=== PATIENT | female | born 1955 | race Caucasian/White ===

== ENCOUNTER → 2016-07-16 | Outpatient (CLI) | payer BC ==
[~2016-07-16] MED LIST: ASPI325T32 PO; EZET10TA3 PO; HYDR-906 PO; HYDR12.58 PO; PANT40TA4 PO; TRAM50TA2 PO
== END | disposition home or self-care (01) ==
LOC: HKI 09:51
PROVIDERS: ATTEND Orthopaedic Surgery
DX: Z01.818 Encounter for other preprocedural examination (principal); M16.11 Unilateral primary osteoarthritis, right hip
CPT/HCPCS: 87081; G0463

== ENCOUNTER 2016-07-22 05:19 | Inpatient (IN) | payer BC ==
[2016-07-21 12:00] VITALS: BMI 25.3
[~2016-07-22] VITALS: Ht 176.5 cm; Wt 82.8 kg
[2016-07-22] VITALS (23 sets, daily range): BP systolic 91–147; BP diastolic 51–75; PULSE 60–78; RESP 11–21; Ht 176.5 cm; Wt 82.8 kg
[2016-07-22] MEDS: LACTATED RINGER'S 1,000 ML IV SCH ×4 (05:00→18:02)
[~2016-07-22 05:19] MED LIST changes: -ASPI325T32 PO; +BUPIVACAINE LIPOSOME/PF 266 MG/20 ML VIAL INFIL ONE; +CEFAZOLIN 2GM/50 ML (PMX) 50 ML X1 BEFORE INCISION IVPB ONE; +CELECOXIB 400 MG PO X1 DOSE PO ONE; +EXPAREL NOTE (BUPIVICAINE LIPOSOMAL) XX SCH; -EZET10TA3 PO; -HYDR-906 PO; -HYDR12.58 PO; +PAIN COCKTAIL-CEFUROXIME IRR ONE; -PANT40TA4 PO; +PREGABALIN 300 MG PO X1 PO ONE; -TRAM50TA2 PO; +TRANEXAMIC ACID 800 MG in SOD CHLORIDE 0.9% 100 ML IVPB ONE; +TRANEXAMIC ACID 800 MG in SOD CHLORIDE 0.9% 92 ML IV ONE; +oxyCODONE (CR) 10 MG TAB [oxyCONTIN] X1 DOSE PO ONE; +traMADOL 50 MG TAB X 1 DOSE PO ONE
[2016-07-22] MEDS ORDERED: SODIUM CL BACTERIOSTATIC 30 ML INJ ONE (06:50)
[2016-07-22] MEDS ORDERED: VANCOMYCIN 1 GM INJ ONE (06:50)
[2016-07-22] MEDS ORDERED: POLYMYXIN B 500000 UNIT INJ ONE (06:50)
[2016-07-22] MEDS ORDERED: ROCURONIUM 50 MG INJ ONE (07:00)
--- NOTE | 2016-07-22 07:11 | HPN ---
Date/Time of Note Date/Time of Note DATE: 07/22/16 TIME: 07:10 Interval H&P Admission Note Pt. seen H&P reviewed: No system changes No change from H&P on 07/13/16 by MARIA GUADALUPE Cooper MD Jul 22, 2016 07:11
[2016-07-22] MEDS ORDERED: SUCCINYLCHOLINE CHLORIDE 100 MG/5 ML SYG IV ONE (07:12)
[2016-07-22] MEDS ORDERED: LIDOCAINE 2% (SDV) 5 ML INJ ONE (07:12)
[2016-07-22] MEDS ORDERED: MIDAZOLAM 1 MG/ML 2 ML INJ ONE (07:12)
[2016-07-22] MEDS ORDERED: PROPOFOL 100 ML ONE (07:12)
[2016-07-22] MEDS ORDERED: FENTAnyl 50 MCG/ML VIAL ONE (07:12)
[2016-07-22] MEDS ORDERED: EZET10TA3 PO (07:13)
[2016-07-22] MEDS ORDERED: HYDR12.58 PO (07:13)
[2016-07-22] MEDS ORDERED: DEXAMETHASONE 4 MG/ML 1 ML INJ ONE (07:44)
[2016-07-22] MEDS ORDERED: EPHEDrine SULFATE 50 MG/5 ML SYG ONE (08:15)
[2016-07-22] MEDS ORDERED: ONDANSETRON 4 MG INJ ONE (08:15)
[2016-07-22] MEDS ORDERED: FAMOTIDINE 20 MG INJ ONE (08:15)
[2016-07-22] MEDS ORDERED: BACITRACIN 50000 UNITS INJ IRR ONE (08:25)
[2016-07-22] MEDS ORDERED: FENTAnyl 50 MCG/ML VIAL IV PRN (09:00)
[2016-07-22] MEDS ORDERED: MEPERIDINE 25 MG INJ IV PRN (09:00)
[2016-07-22] MEDS ORDERED: DIPHENHYDRAMINE 50 MG INJ IV PRN (09:00)
[2016-07-22] MEDS ORDERED: ONDANSETRON 4 MG INJ IV PRN ×2 (09:00→10:30)
[2016-07-22] MEDS ORDERED: PROCHLORPERAZINE 10 MG INJ IV PRN (09:00)
[2016-07-22] MEDS ORDERED: NEOSTIGMINE 3 MG/3 ML SYRINGE ONE (09:13)
[2016-07-22] MEDS ORDERED: GLYCOPYRROLATE 1 MG INJ ONE (09:13)
[2016-07-22] MEDS ORDERED: BACITRACIN/POLYMYXIN 28.35 GM OINT TOP ONE (09:50)
--- NOTE | 2016-07-22 10:10 | OPPN ---
Date/Time of Note Date/Time of Note DATE: 07/22/16 TIME: 10:09 Operative/Procedure Note Dictation # [id number] Pre-Operative Diagnosis Right Hip OA Post-Operative Diagnosis Same Procedure Right Anterior NAHUM Surgeon: MARIA GUADALUPE CHAVEZ MD Boxing Promoter: GUS AC PA-C Anesthesiologist: BRITTANY DAWN MD Findings Severe OA Blood Usage/Administration None Implants/Grafts Depuy NAHUM Estimated blood loss: 250 - 300 ml's Drains Hemovac x 1 Specimens Femoral Head Complications: None Anesthesia type: spinal MARIA GUADALUPE CHAVEZ MD Jul 22, 2016 10:10
--- NOTE | 2016-07-22 10:10 | RADRPT ---
PROCEDURE: Fluoroscopic guidance with x-ray images during right hip arthroplasty. CLINICAL INDICATION: Right hip arthroplasty. TECHNIQUE: 13 x-ray images were obtained during right hip arthroplasty. COMPARISON: None available FINDINGS: 0.7 minutes of fluoroscopy time was utilized during pacemaker insertion. 13 x-ray images were obtai alirio during the procedure in progress for guidance. Cumulative dose total is 7.80 mGy and 0.231 mGym2 . A right hip arthroplasty was performed. The prosthesis is in good position and alignment. No acu te fracture identified. Procedure was performed by . IMPRESSION: 1. Fluoroscopic guidance with x-ray images obtained for right hip arthroplasty. RPTAT: XX .Stepan Gold MD, MD Date Time Electronically viewed and signed by .Stepan Gold MD, on 07/22/2016 10:09 .T/
--- NOTE | 2016-07-22 10:10 | PN ---
Date/Time of Note Date/Time of Note DATE: 07/22/16 TIME: 10:09 Assessment/Plan Lines/Catheters IV Catheter Type (from Nrsg): Peripheral IV Assessment/Plan Assessment/Plan Stable in PACU, s/p right anterior NAHUM -cont abx -pain meds as needed -ASA/SCDs for DVT prophylaxis -OOB with PT -monitor drain -check AM labs -d/c becker in AM XR of the right hip is pending at this time Subjective 24 Hr Interval Summary Doing well in PACU. Complaining of mild pain. Moving all extremities. Exam/Review of Systems Vital Signs Vitals Vital Signs Date Time Temp Pulse Resp B/P Pulse Ox O2 Delivery O2 Flow Rate FiO2 07/22/16 06:56 98.2 77 18 147/75 99 Intake and Output 07/21/16 07/21/16 07/22/16 15:00 23:00 07:00 Intake Total 0 ml Balance 0 ml Exam Free Text/Dictation Dressing dry Incision clean, dry, and intact without redness or drainage Thigh soft 5/5 Quadriceps, Tibialis Anterior, EHL, Gastroc, Soleus, Peroneals Normal sensation Palpable DT/PT, CR <2 sec No distal edema GUS AC PA-C Jul 22, 2016 10:10
[2016-07-22] MEDS: HYDROmorphONE (0.2 MG/ML) 10ML SYG IV PRN ×2 (10:18→10:36)
[2016-07-22] MEDS ORDERED: oxyCODONE 5 MG TAB PO PRN ×2 (10:30)
[2016-07-22] MEDS ORDERED: DIPHENHYDRAMINE 25 MG CAP PO PRN (10:30)
[2016-07-22] MEDS ORDERED: NA PHOSPHATE/BIPHOS 133 ML ENEMA PR PRN (10:30)
[2016-07-22] MEDS ORDERED: NACL 0.9% 3 ML SYG IV SCH (10:30)
[2016-07-22] MEDS ORDERED: BISACODYL 10 MG SUPP PR PRN (10:30)
[2016-07-22] MEDS ORDERED: HYDROmorphONE 1 MG/ML SYG IV PRN (10:30)
[2016-07-22] MEDS ORDERED: MAGNESIUM HYDROXIDE 30ML CUP PO PRN (10:30)
[2016-07-22] MEDS ORDERED: ASPIRIN (EC) 325 MG TAB PO ONE (10:30)
--- NOTE | 2016-07-22 10:34 | OPR ---
DATE OF OPERATION: 07/22/2016 PREOPERATIVE DIAGNOSIS: Right hip osteoarthritis. POSTOPERATIVE DIAGNOSIS: Right hip osteoarthritis. OPERATION PERFORMED: Right anterior total hip arthroplasty. SURGEON: Maria Guadalupe Houston MD SPECIAL EDUCATION CURRICULUM SPECIALIST: SALVATORE Cervantes COMPONENTS USED: DePuy size 54 mm [place] cup, 54/36 neutral AltrX polyethylene liner, size 10 high offset Actis stem, 36+1.5 ceramic head. ANESTHESIA: Spinal plus general endotracheal intubation plus periarticular injection. ANESTHESIOLOGIST: Dr. Prachi Gary ESTIMATED BLOOD LOSS: 300 mL. INTRAVENOUS FLUIDS: 2300 mL crystalloid. SPECIMENS: Femoral head. DRAINS: Hemovac x1. COMPLICATIONS: None. DISPOSITION: Patient tolerated the procedure well and was taken to the recovery room in stable condition. INDICATIONS: The patient is a 61-year-old woman who has had progressive worsening pain in the right hip with radiographic evidence of severe osteoarthritis. She has failed nonsurgical means of treatment to control her pain including activity modifications, pain medications, ambulatory assist devices. Despite these measures, she has had worsening pain and I felt she would benefit from a total hip arthroplasty through an anterior approach. The risks, benefits, and alternatives of the procedure were explained in detail to the patient. I explained the risks of the surgery to include, but not be limited to: bleeding and possible need for blood transfusion; infection; pain; stiffness; neurovascular injury with possible numbness, weakness, and/or paralysis anywhere from the hip down to the toes; fracture; instability; dislocation; leg length inequality; wear and/or loosening of the prosthesis and possible need for future revision; blood clots; pulmonary embolism; and anesthetic complications such as heart attack, stroke, GI bleed, pneumonia, and/ or . Ample time was allowed for the patient to ask questions, all of which were addressed and answered. The patient understood the risks involved and wished to proceed. Informed consent was signed prior to the procedure. PROCEDURE: The patient's right hip was initialed with a marking pen in the preoperative area to identify the correct operative site. The patient was brought to the operating room and transferred [facility] the [facility] to the [facility] where a spinal anesthetic was administered. The patient was then anesthetized and intubated. A Stoll catheter was placed. Both feet were placed into well padded boots which were then placed into the leg holders of the traction booms. A timeout was performed to confirm that the right side was the correct operative site. The patient was given 2 g of intravenous Ancef within one hour prior to the procedure. The operative hip was prepped and draped in the usual sterile fashion. A 10 cm oblique incision was made over the anterior aspect of the hip and carried down through subcutaneous tissue and fat with sharp dissection. The tensor fascia jamie was incised along the length of the wound. The tensor fascia muscle was retracted laterally and the sartorius medially. The anterior circumflex vessels were identified and tied off with 2-0 silk suture and coagulated with the Tissue Link superintendent mechanical. The rectus femoris was elevated off the anterior capsule and an anterior capsulectomy performed. A femoral neck osteotomy was made and the head removed from the acetabulum. The acetabulum was denuded of cartilage circumferentially, as was the femoral head. Retractors were placed around the acetabulum. The remnants of the labrum and ligamentum teres were excised. I reamed the acetabulum to the medial wall and then went into an anatomic position and increased the reamer size in 2 mm increments until I got a good bite and was down to bleeding subchondral bone. The Carrboro cup was opened and impacted into the acetabulum and sat flush circumferentially, getting a good bite. C-arm imaging showed it had about 40 to 45 degrees of abduction and 20 degrees of anteversion. The real liner was opened and impacted into the acetabulum and sat flush circumferentially. Attention was turned towards the femur. The operative leg was carefully lowered to the floor with the leg adducted. The foot was then externally rotated to approximately 110 degrees. A posteromedial release was performed to optimize exposure. The femoral hook was placed underneath the proximal femur and the hydraulic lift was then used to elevate the femur up out of the wound. The cookie cutter osteotome was used to remove the remaining overhanging greater trochanter. The femur was then broached, going up in one size increments until it sat flush with the neck cut and a stable fit was achieved. The trial neck and head were assembled and reduced into the acetabulum. Fluoroscopic imaging showed the components to be in good position and the leg lengths and offsets to be equal. At this point, the trial was dislocated and the trial broach removed. The canal was irrigated and dried. The real stem was opened and impacted into the femur. The trunnion was irrigated and dried, and the real femoral head was impacted onto the trunnion, and reduced into the acetabulum. The soft tissues were infiltrated with a mixture of 150 mg of 0.5% Bupivacaine, 8 mg of Duramorph, 300 mcg of epinephrine, 30 mg of Toradol, 100 mcg of clonidine, 750 mg of cefuroxime and 86 mL of normal saline, followed by an injection of 266 mg of liposomal Bupivacaine. At this point the hip was irrigated with a mixture of betadine/saline and then antibiotic saline with pulsatile lavage. A Hemovac drain was placed in the deep portion of the wound and brought out the anterolateral thigh. There was good hemostasis. The tensor fascia jamie was repaired with a running #1 Vicryl. The deep fat layer was irrigated and closed with 2-0 Stratafix and the subcutaneous layer closed with 3 -0 Vicryl and the skin was closed with interrupted 3-0 Prolene in a vertical mattress fashion. The drain was secured with 3-0 nylon. The sponge and needle counts were correct at the end of the case. The wound was covered with an occlusive dressing. The patient was awakened, extubated, and taken to the recovery room in stable condition. Dictated By: MARIA GUADALUPE BRAXTON/EDIL Conf#: [id number] DID#: [id number] OLI
[2016-07-22 10:35] LABS: HEMATOCRIT 35.7 % (37.0-47.0); HEMOGLOBIN 11.7 g/dl (12.0-16.0)
[2016-07-22] MEDS: CEFAZOLIN 2 GM/50 ML (PMX) 50 ML IVPB SCH ×2 (10:35→18:27)
[2016-07-22 10:48] LABS: CALCIUM 8.9 mg/dl (8.4-10.2); CREATININE 0.9 mg/dl (0.44-1.00); POTASSIUM 3.3 mmol/L (3.5-5.1)
--- NOTE | 2016-07-22 11:03 | RADRPT ---
PROCEDURE: XR Hip. CLINICAL INDICATION: Postop. TECHNIQUE: An AP view of the pelvis was obtained. COMPARISON: X-ray pelvis dated 02/25/2016 FINDINGS: There are postsurgical changes from right total hip arthroplasty with femoral and acetabular compone nts. The hardware is intact. Alignment appears satisfactory on the provided image. No fracture is identified. There are expected post surgical changes with mild subcutaneous emphysema and drainage catheter. IMPRESSION: Expected postoperative changes from total right hip arthroplasty. Alignment appears anatomic. RPTAT: HH .Kelly Potts MD, MD Date Time Electronically viewed and signed by .Kelly Potts MD, MD on 07/22/2016 11:03 .G/
--- NOTE | 2016-07-22 11:04 | RADRPT ---
PROCEDURE: XR Hip. CLINICAL INDICATION: Postop. TECHNIQUE: An AP view of the right hip was obtained. COMPARISON: Pelvis x-ray performed concurrently FINDINGS: There are postsurgical changes from right total hip arthroplasty with femoral and acetabular compone nts. The hardware is intact. Alignment appears satisfactory on the provided image. No fracture is identified. There are expected post surgical changes with mild subcutaneous emphysema and catheter . IMPRESSION: Expected postoperative changes from total right hip arthroplasty. Alignment appears anatomic. RPTAT: HH .Kelly Potts MD, MD Date Time Electronically viewed and signed by .Kelly Potts MD, MD on 07/22/2016 11:04 .G/
[2016-07-22] MEDS ORDERED: POTASSIUM CHLORIDE (SR) 20 MEQ TAB PO STA (11:56)
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
[2016-07-22] MEDS: traMADol 50 MG TAB PO SCH ×5 (12:45→23:13)
[2016-07-22] MEDS: ACETAMINOPHEN 1000MG/100ML IV 100 ML IVPB SCH ×3 (12:46→23:09)
[2016-07-22] MEDS ORDERED: TRANEXAMIC ACID 830 MG in SOD CHLORIDE 0.9% 100 ML IVPB ONE ×2 (13:30→16:30)
[2016-07-22] MEDS ORDERED: BACITRACIN 50000 UNITS INJ ONE (14:54)
[2016-07-22] MEDS: PANTOPRAZOLE (EC) 40 MG TAB PO SCH (18:27)
[2016-07-22] MEDS: DOCUSATE SODIUM 100 MG CAP PO SCH (20:36)
[2016-07-22] MEDS: EZETIMIBE 10 MG TAB PO SCH ×2 (20:36→23:09)
[2016-07-22] MEDS: PREGABALIN 25 MG CAP PO SCH (20:36)
[2016-07-23] MEDS: LACTATED RINGER'S 1,000 ML IV SCH ×2 (00:53→01:44)
[2016-07-23] MEDS: CEFAZOLIN 2 GM/50 ML (PMX) 50 ML IVPB SCH (01:44)
[2016-07-23 04:52] LABS: HEMATOCRIT 25.4 % (37.0-47.0); HEMOGLOBIN 8.2 g/dl (12.0-16.0)
[2016-07-23] MEDS: PANTOPRAZOLE (EC) 40 MG TAB PO SCH ×2 (05:13→18:10)
[2016-07-23] MEDS: traMADol 50 MG TAB PO SCH ×3 (05:13→17:05)
[2016-07-23] MEDS: ACETAMINOPHEN 1000MG/100ML IV 100 ML IVPB SCH (05:13)
[2016-07-23 05:16] LABS: CREATININE 0.95 mg/dl (0.44-1.00)
[2016-07-23 05:17] LABS: CALCIUM 8.4 mg/dl (8.4-10.2)
[2016-07-23] MEDS ORDERED: VITAMIN A & D 5 GM OINT PACKET TOP ONE (05:18)
--- NOTE | 2016-07-23 07:33 | PDOCDIS ---
Discharge Instructions DIAGNOSIS Discharge Diagnosis: s/p right anterior NAHUM CONDITION Patient Condition: Good HOME CARE INSTRUCTIONS: Diet Instructions: Regular ACTIVITY: Activity Restrictions: Slowly Increase Activity Rest between Activity Avoid heavy lifting Do not Drive Do not operate Machinery Do not operate Power Tool Avoid Heavy Housework Keep Limb Elevated Weight Bearing Bathing Restrictions: Shower FOLLOW UP/APPOINTMENTS Appointments follow up in the office on 08/02/16 OTHER ORDERS: Other Orders: S/P Anterior ANHUM Physical Therapy: Three times per week at home x 2 weeks Daily in Rehab/SNF (if applicable) WB STATUS: WBAT Strengthening exercises for both upper and un-operated lower extremities. 1. Gait training with front wheeled walker 2. Wide base gait, no pivot turns. 3. Abductor strengthening. 4. Quadriceps and hamstring strengthening. 5. May switch to cane in contra lateral hand 6 weeks after surgery. 6. Physical Therapy can open case if nursing is not available. 7. Ice Packs while at rest to surgical wound for 20 minutes, 3 times/day. 8. Patient requires mobile SCDs to reduce risk of developing DVT following NAHUM. Patient will use the mobile SCDs for 30 days postoperatively. Hip Precautions: No posterior hip precautions. Bathing assistance by home health aide twice weekly if Medicare patient. Occupational Therapy: Evaluation for assistive devices and ADL training. Wound Care: Keep incision dry & covered with Tegaderm until first visit with Dr. Houston Anticoagulation Orders: Enteric Coated Aspirin 325 mg po bid x 6 weeks from date of surgery Follow-up:Call for an appointment with Dr. Houston in 1 week after discharged from hospital at DME Orders: ROYER, 3-in-1 Commode, Mobile SCDs GUS AC PA-C Jul 23, 2016 07:33
[2016-07-23] MEDS ORDERED: TRAM50TA2 PO (07:34)
[2016-07-23] MEDS ORDERED: ASPI325T32 PO (07:34)
[2016-07-23] MEDS ORDERED: PANT40TA4 PO (07:34)
[2016-07-23] MEDS ORDERED: HYDR-906 PO (07:34)
[2016-07-23 08:20] VITALS: BP 91/53; RESP 16
--- NOTE | 2016-07-23 08:41 | PN ---
Date/Time of Note Date/Time of Note DATE: 07/23/16 TIME: 08:38 Assessment/Plan Lines/Catheters IV Catheter Type (from Nrsg): Peripheral IV Stoll in Place (from Nrsg): Yes Assessment/Plan Assessment/Plan Stable POD #1 with low H&H, s/p right anterior NAHUM -d/c abx -recheck H&H now. Will continue to monitor but no need for transfusion at this point -ASA/SCDs for DVT prophylaxis -pain meds as needed -OOB with PT -drain removed -check AM labs -d/c planning. Will plan to go home tomorrow or tuesday Subjective 24 Hr Interval Summary Doing well. No acute overnight events. H&H low, but drainage output minimal. Does complain of some mild dizziness. VSS, afebrile. Exam/Review of Systems Vital Signs Vitals Vital Signs Date Time Temp Pulse Resp B/P Pulse Ox O2 Delivery O2 Flow Rate FiO2 07/23/16 08:20 98.0 65 16 91/53 98 07/22/16 15:10 Room Air Intake and Output 07/22/16 07/22/16 07/23/16 15:00 23:00 07:00 Intake Total 2208 ml 670 ml 1975 ml Output Total 635 ml 440 ml 1500 ml Balance 1573 ml 230 ml 475 ml Exam Free Text/Dictation Hemovac: 100cc Dressing dry Incision clean, dry, and intact without redness or drainage 5/5 Quadriceps, Tibialis Anterior, EHL, Gastroc, Soleus, Peroneals Normal sensation Palpable DT/PT, CR <2 sec No distal edema Results Result Diagram: 07/23/1642907/23/16429 GUS AC PA-C Jul 23, 2016 08:40
[2016-07-23] MEDS ORDERED: HYDROCHLOROTHIAZIDE 12.5 MG CAP PO SCH (09:00)
[2016-07-23] MEDS: ASPIRIN (EC) 325 MG TAB PO SCH ×2 (09:35→20:41)
[2016-07-23] MEDS: CELECOXIB 200 MG CAP PO SCH (09:35)
[2016-07-23] MEDS: PREGABALIN 25 MG CAP PO SCH ×2 (09:36→20:40)
[2016-07-23] MEDS: DOCUSATE SODIUM 100 MG CAP PO SCH ×2 (09:36→20:40)
[2016-07-23 10:19] LABS: HEMATOCRIT 24.2 % (37.0-47.0); HEMOGLOBIN 7.8 g/dl (12.0-16.0)
--- NOTE | 2016-07-23 10:46 | CONS ---
Date/Time of Note Date/Time of Note DATE: 07/23/16 TIME: 10:42 Assessment/Plan Assessment/Plan Chief Complaint/Hosp Course 1. She is 1 day postop a right total hip arthroplasty. She was up with physical therapy and got dizzy and her blood pressure dropped. I will order a bolus of normal saline and continue her on a normal saline IV. 2. Her hemoglobin and hematocrit are low. She does not want to have a blood transfusion. I told her that we could give her Epogen as a one-time dose to help stimulate her bone marrow. She agrees. I also told her I would check her iron studies to see if she needs iron. Her blood count will be repeated tomorrow. Problems: Consultation Date/Type/Reason Admit Date/Time Jul 22, 2016 at 05:19 Initial Consult Date Type of Consultation: medicine 24 HR Interval Summary Free Text/Dictation She was up earlier with physical therapy and became dizzy and her blood pressure dropped. She says that she feels dehydrated. Constitutional: no complaints Exam/Review of Systems Vital Signs Vitals Vital Signs Date Time Temp Pulse Resp B/P Pulse Ox O2 Delivery O2 Flow Rate FiO2 07/23/16 08:20 98.0 65 16 91/53 98 07/22/16 15:10 Room Air Intake and Output 07/22/16 07/22/16 07/23/16 15:00 23:00 07:00 Intake Total 2208 ml 670 ml 1975 ml Output Total 635 ml 440 ml 1500 ml Balance 1573 ml 230 ml 475 ml Exam Constitutional: alert, oriented, well developed Psych: nl mood/affect, no complaints Respiratory: clear to auscultation, normal air movement Cardiovascular: nl pulses, regular rate and rhythm Musculoskeletal: nl extremities to inspection Results Result Diagram: 07/23/16 1010 07/23/16 0430 Results 24 hrs Laboratory Tests Test 07/23/16 04:30 07/23/16 10:10 Anion Gap 12 Blood Urea Nitrogen 9 Calcium Level 8.4 Carbon Dioxide Level 28 Chloride Level 100 Creatinine 0.95 Glucose Level 134 Hematocrit 25.4 #L 24.2 L Hemoglobin 8.2 #L 7.8 L Potassium Level 4.0 Sodium Level 136 Medications Medications Current Medications Lactated Ringer's (Lr) 1,000 ml @ 100 mls/hr Q10H IV ; Start 07/22/16 at 05:00 Miscellaneous Information 1 ea NOTE XX ; Start 07/22/16 at 05:00; Stop 07/26/16 at 04:59 EZETIMIBE 10 mg 10 mg HS PO ; Start 07/22/16 at 21:00 Lactated Ringer's (Lr) 1,000 ml @ 125 mls/hr Q8H IV Last administered on 01:44; Admin Dose 125 MLS/HR; Start 07/22/16 at 10:02 Celecoxib 200 mg 200 mg DAILY PO Last administered on 07/23/16 09:35; Admin Dose 200 MG; Start 07/23/16 at 09:00 Acetaminophen (Ofirmev 1000mg/ 100ml Iv) 100 ml @ 400 mls/hr Q6 IVPB Last administered on 07/23/16 05:13; Admin Dose 400 MLS/HR; Start 07/22/16 at 12:00; Stop 07/23/16 at 11:59 Tramadol HCl (Ultram) 50 mg Q6 PO Last administered on 07/23/16 05:13; Admin Dose 50 MG; Start 07/22/16 at 12:00; Stop 07/25/16 at 11:59 Oxycodone HCl (Roxicodone) 5 mg Q4H PRN PO PAIN LEVEL 1-3; Start 07/22/16 at 10: 30 Oxycodone HCl (Roxicodone) 10 mg Q4H PRN PO PAIN LEVEL 4-7; Start 07/22/16 at 10 :30 Hydromorphone HCl (Dilaudid) 1 mg Q3H PRN IV PAIN LEVEL 8-10; Start 07/22/16 at 10:30 Ondansetron HCl (Zofran Inj) 4 mg Q6H PRN IV NAUSEA AND/OR VOMITING; Start 07/22 at 10:30 Bisacodyl (Dulcolax Supp) 10 mg Q12H PRN [place] CONSTIPATION; Start 07/22/16 at 10: 30 Magnesium Hydroxide (Milk Of Mag) 30 ml BID PRN PO CONSTIPATION; Start 07/22/16 at 10:30 Sodium Biphosphate/ Sodium Phosphate (Fleet Enema) 133 ml DAILY PRN [place] CONSTIPATION; Start 07/22/16 at 10:30 Docusate Sodium (Colace) 100 mg BID PO Last administered on 07/23/16 09:36; Admin Dose 100 MG; Start 07/22/16 at 21:00 Diphenhydramine HCl (Benadryl) 25 mg Q6H PRN PO PRURITUS; Start 07/22/16 at 10: 30 Aspirin (Ecotrin) 325 mg BID PO Last administered on 07/23/16 09:35; Admin Dose 325 MG; Start 07/23/16 at 09:00 Pregabalin (Lyrica) 50 mg BID PO Last administered on 07/23/16 09:36; Admin Dose 50 MG; Start 07/22/16 at 21:00 Pantoprazole (Protonix Tab) 40 mg BID@06,18 PO Last administered on 07/23/16 05 :13; Admin Dose 40 MG; Start 07/22/16 at 18:00 DELLA HADLEY MD Jul 23, 2016 10:46
[2016-07-23] MEDS: SOD CHLORIDE 0.9% 1,000 ML IV SCH ×2 (10:59→19:58)
[2016-07-23 11:00] VITALS: BP 105/59; PULSE 74; RESP 17
[2016-07-23] MEDS ORDERED: SOD CHLORIDE 0.9% 250 ML IV ONE (11:00)
[2016-07-23 11:26] LABS: IRON 17 ug/dl (35-150)
[2016-07-23 11:36] LABS: TOTAL IRON BINDING CAPACITY 279 ug/dl (241-421)
[2016-07-23] MEDS ORDERED: EPOETIN 10000 UNITS/1 ML INJ (ESRD) SC ONE (12:00)
[2016-07-23] MEDS: SOD FERRIC GLUC COMPLX 125 MG in SOD CHLORIDE 0.9% 100 ML IVPB SCH (16:59)
[2016-07-23 19:33] LABS: ADD UMIC NO; URINE BILIRUBIN (Dip) NEGATIVE (NEGATIVE); URINE BLOOD (Dip) NEGATIVE (NEGATIVE); URINE COLOR LT. YELLOW (YELLOW); URINE GLUCOSE (Dip) NEGATIVE (NEGATIVE); URINE KETONES (Dip) 15 (NEGATIVE); URINE LEUKOCYTE ESTERASE (Dip) NEGATIVE (NEGATIVE); URINE NITRITE (Dip) NEGATIVE (NEGATIVE); URINE TOTAL PROTEIN (Dip) NEGATIVE (NEGATIVE); URINE UROBILINOGEN (Dip) 0.2 E.U./dL (0.1-1.0)
[2016-07-23 19:45] VITALS: BP 102/57; RESP 18
[2016-07-23] MEDS: EZETIMIBE 10 MG TAB PO SCH ×2 (20:41→21:35)
[2016-07-24 00:40] VITALS: BP 105/62; PULSE 73; RESP 18
[2016-07-24] MEDS: traMADol 50 MG TAB PO SCH ×4 (01:20→17:53)
[2016-07-24] MEDS: CEPASTAT LOZENGE MT PRN ×2 (01:21→16:41)
[2016-07-24] MEDS: SOD CHLORIDE 0.9% 1,000 ML IV SCH ×3 (04:00→17:06)
[2016-07-24] MEDS: PANTOPRAZOLE (EC) 40 MG TAB PO SCH ×2 (06:39→17:53)
[2016-07-24 07:33] LABS: ADD SCAN DIFF NO
[2016-07-24 07:38] LABS: BASOPHILS % 0.2 % (0.0-2.0); EOSINOPHILS % 0.8 % (0.0-7.0); HEMATOCRIT 25.7 % (37.0-47.0); HEMOGLOBIN 8.3 g/dl (12.0-16.0); LYMPHOCYTES # 0.9 10^3/ul (0.8-2.9); LYMPHOCYTES % 17.9 % (15.0-51.0); MEAN CORPUSCULAR HEMOGLOBIN 28.6 pg (29.0-33.0); MEAN CORPUSCULAR HGB CONC 32.3 g/dl (32.0-37.0); MEAN CORPUSCULAR VOLUME 88.6 fl (82.0-101.0); MEAN PLATELET VOLUME 9.8 fl (7.4-10.4); MONOCYTE # 0.3 10^3/ul (0.3-0.9); MONOCYTES % 6.7 % (0.0-11.0); NEUTROPHIL # 3.7 10^3/ul (1.6-7.5); PLATELET COUNT 183 10^3/UL (140-415); RED CELL DISTRIBUTION WIDTH 13.4 % (11.5-14.5)
[2016-07-24 07:53] LABS: CREATININE 0.88 mg/dl (0.44-1.00)
[2016-07-24 07:54] LABS: CALCIUM 8.3 mg/dl (8.4-10.2)
[2016-07-24 08:01] VITALS: BP 122/69; RESP 20
--- NOTE | 2016-07-24 08:15 | PN ---
Date/Time of Note Date/Time of Note DATE: 07/24/16 TIME: 08:12 Assessment/Plan Lines/Catheters IV Catheter Type (from Nrsg): Peripheral IV Stoll in Place (from Nrsg): No Assessment/Plan Assessment/Plan POD # 2. Stable. -H/H slightly improved -No transfusion at this time -Continue IVF hydration as needed -OOB wtih PT -Pain meds -Ice to thigh -ASA/SCDs for DVT prophylaxis -Possible d/c to home tomorrow Subjective 24 Hr Interval Summary Resting comfortably. Had some dizziness yesterday but better this AM. Pain well controlled. Exam/Review of Systems Vital Signs Vitals Vital Signs Date Time Temp Pulse Resp B/P Pulse Ox O2 Delivery O2 Flow Rate FiO2 07/24/16 08:01 97.8 85 20 122/69 99 07/24/16 00:40 Room Air Intake and Output 07/23/16 07/23/16 07/24/16 15:00 23:00 07:00 Intake Total 625 ml 2485 ml 1600 ml Output Total 40 ml 1200 ml 1700 ml Balance 585 ml 1285 ml -100 ml Exam Free Text/Dictation Dressing dry Incision clean, dry, and intact without redness or drainage Thigh soft but swollen 5/5 Quadriceps, Tibialis Anterior, EHL, Gastroc Soleus, Peroneals Normal sensation Palpable DP/PT, CR < 2 Sec No distal edema Results Result Diagram: 07/24/16 0645 07/23/16 0430 MARIA GUADALUPE CHAVEZ MD Jul 24, 2016 08:15
[2016-07-24] MEDS: CELECOXIB 200 MG CAP PO SCH (09:01)
[2016-07-24] MEDS: ASPIRIN (EC) 325 MG TAB PO SCH ×2 (09:01→21:31)
[2016-07-24] MEDS: PREGABALIN 25 MG CAP PO SCH ×2 (09:02→21:30)
[2016-07-24] MEDS: DOCUSATE SODIUM 100 MG CAP PO SCH ×2 (09:02→21:30)
--- NOTE | 2016-07-24 12:06 | CONS ---
Date/Time of Note Date/Time of Note DATE: 07/24/16 TIME: 12:04 Assessment/Plan Assessment/Plan Additional Assessment/Plan 1. stable post op course 2. dulcolax for constiation 3. Iron Deficiency Anemia - saturation low, started on IV iron x 3. S/p EPO x 1 as well. Hgb starting to improve. 4. agree with discharge tomorrow after iron infusion Consultation Date/Type/Reason Admit Date/Time Jul 22, 2016 at 05:19 Initial Consult Date Type of Consultation: medicine 24 HR Interval Summary Free Text/Dictation Feeling much better today. Not as fatigued. Some neck pain and rib pain, better with sitting up. No BM in 4 days, requesting dulcolax. Exam/Review of Systems Vital Signs Vitals Vital Signs Date Time Temp Pulse Resp B/P Pulse Ox O2 Delivery O2 Flow Rate FiO2 07/24/16 08:01 97.8 85 20 122/69 99 07/24/16 00:40 Room Air Intake and Output 07/23/16 07/23/16 07/24/16 15:00 23:00 07:00 Intake Total 625 ml 2485 ml 1600 ml Output Total 40 ml 1200 ml 1700 ml Balance 585 ml 1285 ml -100 ml Exam Constitutional: alert, oriented, well developed Respiratory: clear to auscultation, normal air movement Cardiovascular: nl pulses, regular rate and rhythm Gastrointestinal: nl liver, spleen, non-tender, soft Results Result Diagram: 07/24/16 0645 07/24/16 0645 Results 24 hrs Laboratory Tests Test 07/24/16 06:45 Anion Gap 12 Basophils # 0.0 Basophils % 0.2 Blood Urea Nitrogen 10 Calcium Level 8.3 L Carbon Dioxide Level 28 Chloride Level 106 Creatinine 0.88 Eosinophils # 0.0 Eosinophils % 0.8 Glucose Level 122 Hematocrit 25.7 L Hemoglobin 8.3 L Lymphocytes # 0.9 Lymphocytes % 17.9 Mean Corpuscular Hemoglobin 28.6 L Mean Corpuscular Hemoglobin Concent 32.3 Mean Corpuscular Volume 88.6 Mean Platelet Volume 9.8 Monocytes # 0.3 Monocytes % 6.7 Neutrophils # 3.7 Neutrophils % 74.0 Nucleated Red Blood Cells # 0.0 Nucleated Red Blood Cells % 0.0 Platelet Count 183 Potassium Level 3.0 L Red Blood Count 2.90 L Red Cell Distribution Width 13.4 Sodium Level 143 White Blood Count 5.0 Medications Medications Current Medications Miscellaneous Information 1 ea NOTE XX ; Start 07/22/16 at 05:00; Stop 07/26/16 at 04:59 Celecoxib (Celebrex) 200 mg DAILY PO Last administered on 07/24/16 09:01; Admin Dose 200 MG; Start 07/23/16 at 09:00 Tramadol HCl (Ultram) 50 mg Q6 PO Last administered on 07/24/16 06:40; Admin Dose 50 MG; Start 07/22/16 at 12:00; Stop 07/25/16 at 11:59 Oxycodone HCl (Roxicodone) 5 mg Q4H PRN PO PAIN LEVEL 1-3; Start 07/22/16 at 10: 30 Oxycodone HCl (Roxicodone) 10 mg Q4H PRN PO PAIN LEVEL 4-7; Start 07/22/16 at 10 :30 Hydromorphone HCl (Dilaudid) 1 mg Q3H PRN IV PAIN LEVEL 8-10; Start 07/22/16 at 10:30 Ondansetron HCl (Zofran Inj) 4 mg Q6H PRN IV NAUSEA AND/OR VOMITING; Start 07/22 at 10:30 Bisacodyl (Dulcolax Supp) 10 mg Q12H PRN [place] CONSTIPATION; Start 07/22/16 at 10: 30 Magnesium Hydroxide (Milk Of Mag) 30 ml BID PRN PO CONSTIPATION Last administered on 07/23/16 15:52; Admin Dose 30 ML; Start 07/22/16 at 10:30 Sodium Biphosphate/ Sodium Phosphate (Fleet Enema) 133 ml DAILY PRN [place] CONSTIPATION; Start 07/22/16 at 10:30 Docusate Sodium (Colace) 100 mg BID PO Last administered on 07/24/16 09:02; Admin Dose 100 MG; Start 07/22/16 at 21:00 Diphenhydramine HCl (Benadryl) 25 mg Q6H PRN PO PRURITUS; Start 07/22/16 at 10: 30 Aspirin (Ecotrin) 325 mg BID PO Last administered on 07/24/16 09:01; Admin Dose 325 MG; Start 07/23/16 at 09:00 Pregabalin (Lyrica) 50 mg BID PO Last administered on 07/24/16 09:02; Admin Dose 50 MG; Start 07/22/16 at 21:00 Pantoprazole 40 mg 40 mg BID@06,18 PO Last administered on 07/24/16 06:39; Admin Dose 40 MG; Start 07/22/16 at 18:00 Sodium Chloride 1,000 ml @ 125 mls/hr Q8H IV Last administered on 07/24/16 07: 31; Admin Dose 125 MLS/HR; Start 07/23/16 at 11:00 Ferric Sodium Gluconate Complex/ Sodium Chloride (Ferrlecit/NS) 110 ml @ 100 mls/hr Q24H IVPB Last administered on 07/23/16 16:59; Admin Dose 100 MLS/HR; Start 07/23/16 at 17:00; Stop 07/25/16 at 18:05 Simethicone (Mylicon) 80 mg Q6H PRN PO DISTENSION/GAS/BLOATING Last administered on 07/23/16 21:35; Admin Dose 80 MG; Start 07/23/16 at 21:00 EZETIMIBE (Zetia) 5 mg Q48H PO Last administered on 07/23/16 21:35; Admin Dose 5 MG; Start 07/23/16 at 21:00 Phenol (Cepastat Lozenge) 1 lozenge Q2H PRN [place] SORE THROAT Last administered on 07/24/16 01:21; Admin Dose 1 LOZENGE; Start 07/24/16 at 01:00 WILLEM RICHARDSON MD Jul 24, 2016 12:06
[2016-07-24 14:00] VITALS: BP 112/62; PULSE 70; PULSE 74
[2016-07-24] MEDS: SOD FERRIC GLUC COMPLX 125 MG in SOD CHLORIDE 0.9% 100 ML IVPB SCH (17:06)
[2016-07-24 19:00] VITALS: BP 105/57; RESP 18
[2016-07-24] MEDS ORDERED: POLYETHYLENE GLYCOL 3350 119 GM POWDER PO ONE (20:30)
[2016-07-24] MEDS ORDERED: POLYETHYLENE GLYCOL 17 GM PACKET PO PRN (21:30)
[2016-07-25] MEDS: SOD CHLORIDE 0.9% 1,000 ML IV SCH ×3 (03:00→19:00)
[2016-07-25] MEDS: PANTOPRAZOLE (EC) 40 MG TAB PO SCH ×2 (04:45→16:52)
[2016-07-25] MEDS: traMADol 50 MG TAB PO SCH ×2 (06:00)
[2016-07-25 06:18] LABS: HEMOGLOBIN 7.7 g/dl (12.0-16.0)
[2016-07-25 06:52] LABS: POTASSIUM 3.5 mmol/L (3.5-5.1)
[2016-07-25 06:55] LABS: CREATININE 0.79 mg/dl (0.44-1.00)
[2016-07-25 06:56] LABS: CALCIUM 8.1 mg/dl (8.4-10.2)
[2016-07-25 07:35] VITALS: BP 128/69; RESP 18
[2016-07-25] MEDS: CELECOXIB 200 MG CAP PO SCH (08:39)
[2016-07-25] MEDS: DOCUSATE SODIUM 100 MG CAP PO SCH ×2 (08:40→20:26)
[2016-07-25] MEDS: ASPIRIN (EC) 325 MG TAB PO SCH ×2 (08:40→20:26)
[2016-07-25] MEDS: PREGABALIN 25 MG CAP PO SCH ×2 (08:40→20:26)
[2016-07-25] MEDS ORDERED: BISACODYL (EC) 5 MG TAB PO ONE (09:00)
--- NOTE | 2016-07-25 11:39 | CONS ---
Date/Time of Note Date/Time of Note DATE: 07/25/16 TIME: 11:37 Assessment/Plan Assessment/Plan Additional Assessment/Plan 1. stable post op course 2. cont pain control and bowel regimen 3. Iron Deficiency Anemia - saturation low, started on IV iron x 3. S/p EPO x 1 as well. Hgb stable; slight decrease likely due to lab variation. BP normal, able to ambulate without symptoms of dizziness, lightheadedness 4. discharge tomorrow after iron infusion tonight Consultation Date/Type/Reason Admit Date/Time Jul 22, 2016 at 05:19 Type of Consultation: medicine 24 HR Interval Summary Free Text/Dictation better. had small BM yesterday. Reports that vision is slightly blurry, usually she wants her vision to be extremely sharp. She can still read and watch television, but feels like it is not as sharp as usual. Exam/Review of Systems Vital Signs Vitals Vital Signs Date Time Temp Pulse Resp B/P Pulse Ox O2 Delivery O2 Flow Rate FiO2 07/25/16 07:35 98.1 80 18 128/69 96 07/24/16 00:40 Room Air Intake and Output 07/24/16 07/24/16 07/25/16 15:00 23:00 07:00 Intake Total 1950 ml 2500 ml Output Total 1400 ml Balance 550 ml 2500 ml Exam Constitutional: alert, oriented, well developed Respiratory: clear to auscultation, normal air movement Cardiovascular: nl pulses, regular rate and rhythm Gastrointestinal: nl liver, spleen, non-tender, soft Neurological: [employer] II-XII intact, nl mental status, nl speech, nl strength Results Result Diagram: 07/25/16 0431 07/25/16 0431 Results 24 hrs Laboratory Tests Test 07/25/16 04:31 Anion Gap 12 Blood Urea Nitrogen 6 L Calcium Level 8.1 L Carbon Dioxide Level 28 Chloride Level 107 Creatinine 0.79 Glucose Level 96 Hematocrit 25.0 L Hemoglobin 7.7 L Potassium Level 3.5 Sodium Level 143 Medications Medications Current Medications Miscellaneous Information 1 ea NOTE XX ; Start 07/22/16 at 05:00; Stop 07/26/16 at 04:59 Celecoxib (Celebrex) 200 mg DAILY PO Last administered on 07/25/16t 08:39; Admin Dose 200 MG; Start 07/23/16 at 09:00 Tramadol HCl (Ultram) 50 mg Q6 PO Last administered on 07/24/16 17:53; Admin Dose 50 MG; Start 07/22/16 at 12:00; Stop 07/25/16 at 11:59 Oxycodone HCl (Roxicodone) 5 mg Q4H PRN PO PAIN LEVEL 1-3; Start 07/22/16 at 10: 30 Oxycodone HCl (Roxicodone) 10 mg Q4H PRN PO PAIN LEVEL 4-7; Start 07/22/16 at 10 :30 Hydromorphone HCl (Dilaudid) 1 mg Q3H PRN IV PAIN LEVEL 8-10; Start 07/22/16 at 10:30 Ondansetron HCl (Zofran Inj) 4 mg Q6H PRN IV NAUSEA AND/OR VOMITING; Start 07/22 at 10:30 Bisacodyl (Dulcolax Supp) 10 mg Q12H PRN [place] CONSTIPATION Last administered on 04:45; Admin Dose 10 MG; Start 07/22/16 at 10:30 Magnesium Hydroxide (Milk Of Mag) 30 ml BID PRN PO CONSTIPATION Last administered on 07/23/16 15:52; Admin Dose 30 ML; Start 07/22/16 at 10:30 Sodium Biphosphate/ Sodium Phosphate (Fleet Enema) 133 ml DAILY PRN [place] CONSTIPATION; Start 07/22/16 at 10:30 Docusate Sodium (Colace) 100 mg BID PO Last administered on 07/25/16 08:40; Admin Dose 100 MG; Start 07/22/16 at 21:00 Diphenhydramine HCl (Benadryl) 25 mg Q6H PRN PO PRURITUS; Start 07/22/16 at 10: 30 Aspirin (Ecotrin) 325 mg BID PO Last administered on 07/25/16 08:40; Admin Dose 325 MG; Start 07/23/16 at 09:00 Pregabalin (Lyrica) 50 mg BID PO Last administered on 07/25/16 08:40; Admin Dose 50 MG; Start 07/22/16 at 21:00 Pantoprazole 40 mg 40 mg BID@06,18 PO Last administered on 07/25/16 04:45; Admin Dose 40 MG; Start 07/22/16 at 18:00 Sodium Chloride 1,000 ml @ 125 mls/hr Q8H IV Last administered on 07/24/16 17: 06; Admin Dose 125 MLS/HR; Start 07/23/16 at 11:00 Ferric Sodium Gluconate Complex/ Sodium Chloride (Ferrlecit/NS) 110 ml @ 100 mls/hr Q24H IVPB Last administered on 07/24/16 17:06; Admin Dose 100 MLS/HR; Start 07/23/16 at 17:00; Stop 07/25/16 at 18:05 Simethicone (Mylicon) 80 mg Q6H PRN PO DISTENSION/GAS/BLOATING Last administered on 07/23/16 21:35; Admin Dose 80 MG; Start 07/23/16 at 21:00 EZETIMIBE (Zetia) 5 mg Q48H PO Last administered on 07/23/16 21:35; Admin Dose 5 MG; Start 07/23/16 at 21:00 Phenol (Cepastat Lozenge) 1 lozenge Q2H PRN [place] SORE THROAT Last administered on 07/24/16 16:41; Admin Dose 1 LOZENGE; Start 07/24/16 at 01:00 Polyethylene Glycol (Miralax) 17 gm DAILY PRN PO CONSTIPATION Last administered on 07/24/16 21:31; Admin Dose 17 GM; Start 07/24/16 at 21:30 WILLEM RICHARDSON MD Jul 25, 2016 11:39
--- NOTE | 2016-07-25 13:39 | PN ---
Date/Time of Note Date/Time of Note DATE: 07/25/16 TIME: 13:37 Assessment/Plan Lines/Catheters IV Catheter Type (from Nrsg): Saline Lock Stoll in Place (from Nrsg): No Assessment/Plan Assessment/Plan POD # 3. Stable. -H/H stable -Continue observation -Iron infusion as per medicine -Check venous doppler to r/o DVT -Continue ASA/SCDs -OOB with PT -Probable d/c to home tomorrow Subjective 24 Hr Interval Summary Resting comfortably. Pain well controlled. Walked with PT. Exam/Review of Systems Vital Signs Vitals Vital Signs Date Time Temp Pulse Resp B/P Pulse Ox O2 Delivery O2 Flow Rate FiO2 07/25/16 07:35 98.1 80 18 128/69 96 07/24/16 00:40 Room Air Intake and Output 07/24/16 07/24/16 07/25/16 15:00 23:00 07:00 Intake Total 1950 ml 2500 ml Output Total 1400 ml Balance 550 ml 2500 ml Exam Free Text/Dictation Dressing dry Incision clean, dry, and intact without redness or drainage Thigh soft but swollen 5 Quadriceps, Tibialis Anterior, EHL, Gastroc Soleus, Peroneals Normal sensation Palpable DP/PT, CR < 2 Sec Trace distal edema, negative calf tenderness, negative Yvette's Results Result Diagram: 07/25/1643007/25/16 043 MARIA GUADALUPE CHAVEZ MD Jul 25, 2016 13:39
--- NOTE | 2016-07-25 14:46 | RADRPT ---
PROCEDURE: US Lower extremity Venous. CLINICAL INDICATION: Leg pain. Leg swelling. Postop TECHNIQUE: Multiple sonographic images of the right lower extremity deep venous system was obtaine d utilizing grayscale, color-flow, compressive sonography and doppler imaging with augmentation. Th e images were reviewed on a PACS workstation. COMPARISON: None FINDINGS: There is normal compressibility and flow within the right common femoral, deep femoral, superficial femoral and popliteal veins. The deep veins the calf were incompletely visualized. There are no find ings of deep venous thrombosis. IMPRESSION: No sonographic evidence for deep venous thrombosis in the right lower extremity. RPTAT: EE .Yohana Byrd MD, MD Date Time Electronically viewed and signed by .Yohana Byrd MD, on 07/25/2016 14:46 .Bladimir/
[2016-07-25] MEDS: SOD FERRIC GLUC COMPLX 125 MG in SOD CHLORIDE 0.9% 100 ML IVPB SCH (16:52)
[2016-07-25 19:33] VITALS: BP 111/76; RESP 20
[2016-07-25] MEDS: EZETIMIBE 10 MG TAB PO SCH (20:27)
[2016-07-25] MEDS ORDERED: EZETIMIBE 10 MG TAB PO SCH (21:00)
[2016-07-26] MEDS ORDERED: CYCLOBENZAPRINE 10 MG TAB PO PRN (01:30)
[2016-07-26] MEDS: SOD CHLORIDE 0.9% 1,000 ML IV SCH ×3 (03:00→19:00)
[2016-07-26 05:39] LABS: HEMATOCRIT 23.5 % (37.0-47.0); HEMOGLOBIN 7.4 g/dl (12.0-16.0)
[2016-07-26 05:40] LABS: POTASSIUM 3.6 mmol/L (3.5-5.1)
[2016-07-26 05:43] LABS: CALCIUM 8.3 mg/dl (8.4-10.2); CREATININE 0.76 mg/dl (0.44-1.00)
[2016-07-26] MEDS: PANTOPRAZOLE (EC) 40 MG TAB PO SCH ×2 (06:00→18:00)
[2016-07-26 08:00] VITALS: BP_SYST 117; BP_SYST 142; BP_DIAS 78; BP_DIAS 87; PULSE 80; PULSE 89; RESP 18
[2016-07-26] MEDS: CELECOXIB 200 MG CAP PO SCH (08:36)
[2016-07-26] MEDS: PREGABALIN 25 MG CAP PO SCH ×2 (08:36→21:32)
[2016-07-26] MEDS: DOCUSATE SODIUM 100 MG CAP PO SCH ×2 (08:36→21:32)
[2016-07-26] MEDS: ASPIRIN (EC) 325 MG TAB PO SCH ×2 (08:36→21:32)
--- NOTE | 2016-07-26 08:49 | PN ---
Date/Time of Note Date/Time of Note DATE: 07/26/16 TIME: 08:46 Assessment/Plan Lines/Catheters IV Catheter Type (from Nrsg): Saline Lock Stoll in Place (from Nrsg): No Assessment/Plan Assessment/Plan POD #4, s/p right anterior NAHUM -pain meds as needed -OOB with PT -elevate extremity -dressing changed -ASA/SCDs for DVT prophylaxis -H&H low but will hold off on transfusion per patient request -doppler negative for DVT -will consult correctional case manager regarding [facility] transfer -dispo home versus [facility] today or tomorrow Subjective 24 Hr Interval Summary No acute overnight events. H&H continues to be low, but would like to hold off transfusion. Doppler negative for DVT but complaining of leg swelling. VSS, no hypotension or tachycardia noted. Will consider transfer to [facility] instead of home. Exam/Review of Systems Vital Signs Vitals Vital Signs Date Time Temp Pulse Resp B/P Pulse Ox O2 Delivery O2 Flow Rate FiO2 07/25/16 19:33 98.3 84 20 111/76 96 07/24/16 00:40 Room Air Intake and Output 07/25/16 07/25/16 07/26/16 15:00 23:00 07:00 Intake Total 820 ml 500 ml Balance 820 ml 500 ml Exam Free Text/Dictation Dressing dry Incision clean, dry, and intact without redness or drainage 5/5 Quadriceps, Tibialis Anterior, EHL, Gastroc, Soleus, Peroneals Moderate soft tissue swelling of proximal leg Homans sign negative Normal sensation Palpable DT/PT, CR <2 sec No distal edema Results Result Diagram: 07/26/16 0420 07/26/16 0420 GUS AC PA-C Jul 26, 2016 08:49
--- NOTE | 2016-07-26 10:51 | CONS ---
Date/Time of Note Date/Time of Note DATE: 07/26/16 TIME: 10:47 Assessment/Plan Assessment/Plan Chief Complaint/Hosp Course 1. She is 4 days postop a right total hip arthroplasty . She says that she feels tired but denies any palpitations, chest pain or shortness of breath. 2. Her hemoglobin and hematocrit are low. She is asymptomatic with this. She does not want to have a blood transfusion. I told her that I would give her another dose of Epogen and another dose of referral is set. Her iron level was low. She agrees. Her blood count will be repeated tomorrow. Problems: Consultation Date/Type/Reason Admit Date/Time Jul 22, 2016 at 05:19 Type of Consultation: medicine 24 HR Interval Summary Free Text/Dictation She says that she feels tired. She denies any palpitations, chest pain or shortness of breath. Exam/Review of Systems Vital Signs Vitals Vital Signs Date Time Temp Pulse Resp B/P Pulse Ox O2 Delivery O2 Flow Rate FiO2 07/26/16 08:00 98.2 89 18 142/78 98 Room Air Intake and Output 07/25/16 07/25/16 07/26/16 15:00 23:00 07:00 Intake Total 820 ml 500 ml Balance 820 ml 500 ml Exam Her right leg is swollen. Constitutional: alert, oriented, well developed Respiratory: clear to auscultation, normal air movement Cardiovascular: nl pulses, regular rate and rhythm Extremities: edema Results Result Diagram: 07/26/16 0420 07/26/16 0420 Results 24 hrs Laboratory Tests Test 07/26/16 04:20 Anion Gap 12 Blood Urea Nitrogen 6 L Calcium Level 8.3 L Carbon Dioxide Level 26 Chloride Level 108 Creatinine 0.76 Glucose Level 95 Hematocrit 23.5 L Hemoglobin 7.4 L Potassium Level 3.6 Sodium Level 142 Medications Medications Current Medications Celecoxib (Celebrex) 200 mg DAILY PO Last administered on 07/26/16t 08:36; Admin Dose 200 MG; Start 07/23/16 at 09:00 Oxycodone HCl (Roxicodone) 5 mg Q4H PRN PO PAIN LEVEL 1-3; Start 07/22/16 at 10: 30 Oxycodone HCl (Roxicodone) 10 mg Q4H PRN PO PAIN LEVEL 4-7; Start 07/22/16 at 10 :30 Hydromorphone HCl (Dilaudid) 1 mg Q3H PRN IV PAIN LEVEL 8-10; Start 07/22/16 at 10:30 Ondansetron HCl (Zofran Inj) 4 mg Q6H PRN IV NAUSEA AND/OR VOMITING; Start 07/22 at 10:30 Bisacodyl (Dulcolax Supp) 10 mg Q12H PRN [place] CONSTIPATION Last administered on 04:45; Admin Dose 10 MG; Start 07/22/16 at 10:30 Magnesium Hydroxide (Milk Of Mag) 30 ml BID PRN PO CONSTIPATION Last administered on 07/23/16 15:52; Admin Dose 30 ML; Start 07/22/16 at 10:30 Sodium Biphosphate/ Sodium Phosphate (Fleet Enema) 133 ml DAILY PRN [place] CONSTIPATION; Start 07/22/16 at 10:30 Docusate Sodium (Colace) 100 mg BID PO Last administered on 07/26/16 08:36; Admin Dose 100 MG; Start 07/22/16 at 21:00 Diphenhydramine HCl (Benadryl) 25 mg Q6H PRN PO PRURITUS; Start 07/22/16 at 10: 30 Aspirin (Ecotrin) 325 mg BID PO Last administered on 07/26/16 08:36; Admin Dose 325 MG; Start 07/23/16 at 09:00 Pregabalin (Lyrica) 50 mg BID PO Last administered on 07/26/16 08:36; Admin Dose 50 MG; Start 07/22/16 at 21:00 Pantoprazole 40 mg 40 mg BID@06,18 PO Last administered on 07/25/16 16:52; Admin Dose 40 MG; Start 07/22/16 at 18:00 Sodium Chloride (NS) 1,000 ml @ 125 mls/hr Q8H IV Last administered on 17:06; Admin Dose 125 MLS/HR; Start 07/23/16 at 11:00 Simethicone (Mylicon) 80 mg Q6H PRN PO DISTENSION/GAS/BLOATING Last administered on 07/23/16 21:35; Admin Dose 80 MG; Start 07/23/16 at 21:00 EZETIMIBE (Zetia) 5 mg Q48H PO Last administered on 07/25/16 20:27; Admin Dose 5 MG; Start 07/23/16 at 21:00 Phenol (Cepastat Lozenge) 1 lozenge Q2H PRN [place] SORE THROAT Last administered on 07/24/16 16:41; Admin Dose 1 LOZENGE; Start 07/24/16 at 01:00 Polyethylene Glycol (Miralax) 17 gm DAILY PRN PO CONSTIPATION Last administered on 07/24/16 21:31; Admin Dose 17 GM; Start 07/24/16 at 21:30 Cyclobenzaprine HCl (Flexeril) 5 mg Q6 PRN PO MUSCLE SPASMS Last administered on 07/26/16 01:49; Admin Dose 5 MG; Start 07/26/16 at 01:30 DELLA HADLEY MD Jul 26, 2016 10:51
[2016-07-26] MEDS ORDERED: SOD FERRIC GLUC COMPLX 125 MG in SOD CHLORIDE 0.9% 100 ML IVPB ONE (12:00)
[2016-07-26] MEDS ORDERED: EPOETIN 10000 UNITS/1 ML INJ (ESRD) SC SCH (12:00)
[2016-07-26 19:26] VITALS: BP 99/58; RESP 18
[2016-07-27] MEDS: SOD CHLORIDE 0.9% 1,000 ML IV SCH ×2 (02:18→11:00)
[2016-07-27 05:09] LABS: HEMATOCRIT 25.5 % (37.0-47.0); HEMOGLOBIN 7.9 g/dl (12.0-16.0)
[2016-07-27] MEDS: PANTOPRAZOLE (EC) 40 MG TAB PO SCH (05:52)
[2016-07-27 06:14] LABS: POTASSIUM 3.9 mmol/L (3.5-5.1)
[2016-07-27 06:16] LABS: CREATININE 0.92 mg/dl (0.44-1.00)
[2016-07-27 06:17] LABS: CALCIUM 8.7 mg/dl (8.4-10.2)
[2016-07-27 08:12] VITALS: BP 127/66; RESP 18
--- NOTE | 2016-07-27 08:23 | CONS ---
Date/Time of Note Date/Time of Note DATE: 07/27/16 TIME: 08:19 Assessment/Plan Assessment/Plan Chief Complaint/Hosp Course 1. She is 5 days postop a right total hip arthroplasty . She says that she feels better. 2. Her hemoglobin and hematocrit are higher today.. She has received 2 doses of Epogen and 4 doses of IV iron. 3. She can be discharged to home today. I told her to take supplemental ferrous sulfate and vitamin C. I will order a CBC in 2 days, to be done by the home health nurse and called to my office . Problems: Consultation Date/Type/Reason Admit Date/Time Jul 22, 2016 at 05:19 Type of Consultation: medicine 24 HR Interval Summary Free Text/Dictation She is feeling better today. She feels like she is ready to go home. Constitutional: improved, no complaints Exam/Review of Systems Vital Signs Vitals Vital Signs Date Time Temp Pulse Resp B/P Pulse Ox O2 Delivery O2 Flow Rate FiO2 07/27/16 08:12 98.5 80 18 127/66 99 07/26/16 08:00 Room Air Intake and Output 07/26/16 07/26/16 07/27/16 15:00 23:00 07:00 Intake Total 110 ml 1080 ml 760 ml Balance 110 ml 1080 ml 760 ml Exam Constitutional: alert, oriented, well developed Psych: nl mood/affect, no complaints Respiratory: clear to auscultation, normal air movement Cardiovascular: regular rate and rhythm Gastrointestinal: soft Extremities: edema Results Result Diagram: 07/27/16 0415 07/27/16 0415 Results 24 hrs Laboratory Tests Test 07/27/16 04:15 Anion Gap 13 Blood Urea Nitrogen 9 Calcium Level 8.7 Carbon Dioxide Level 28 Chloride Level 106 Creatinine 0.92 Glucose Level 114 Hematocrit 25.5 L Hemoglobin 7.9 L Potassium Level 3.9 Sodium Level 143 Medications Medications Current Medications Celecoxib (Celebrex) 200 mg DAILY PO Last administered on 07/26/16t 08:36; Admin Dose 200 MG; Start 07/23/16 at 09:00 Oxycodone HCl (Roxicodone) 5 mg Q4H PRN PO PAIN LEVEL 1-3; Start 07/22/16 at 10: 30 Oxycodone HCl (Roxicodone) 10 mg Q4H PRN PO PAIN LEVEL 4-7; Start 07/22/16 at 10 :30 Hydromorphone HCl (Dilaudid) 1 mg Q3H PRN IV PAIN LEVEL 8-10; Start 07/22/16 at 10:30 Ondansetron HCl (Zofran Inj) 4 mg Q6H PRN IV NAUSEA AND/OR VOMITING; Start 07/22 at 10:30 Bisacodyl (Dulcolax Supp) 10 mg Q12H PRN [place] CONSTIPATION Last administered on 04:45; Admin Dose 10 MG; Start 07/22/16 at 10:30 Magnesium Hydroxide (Milk Of Mag) 30 ml BID PRN PO CONSTIPATION Last administered on 07/23/16 15:52; Admin Dose 30 ML; Start 07/22/16 at 10:30 Sodium Biphosphate/ Sodium Phosphate (Fleet Enema) 133 ml DAILY PRN [place] CONSTIPATION; Start 07/22/16 at 10:30 Docusate Sodium (Colace) 100 mg BID PO Last administered on 07/26/16 21:32; Admin Dose 100 MG; Start 07/22/16 at 21:00 Diphenhydramine HCl (Benadryl) 25 mg Q6H PRN PO PRURITUS; Start 07/22/16 at 10: 30 Aspirin (Ecotrin) 325 mg BID PO Last administered on 07/26/16 21:32; Admin Dose 325 MG; Start 07/23/16 at 09:00 Pregabalin (Lyrica) 50 mg BID PO Last administered on 07/26/16 21:32; Admin Dose 50 MG; Start 07/22/16 at 21:00 Pantoprazole 40 mg 40 mg BID@06,18 PO Last administered on 07/27/16 05:52; Admin Dose 40 MG; Start 07/22/16 at 18:00 Sodium Chloride (NS) 1,000 ml @ 125 mls/hr Q8H IV Last administered on 17:06; Admin Dose 125 MLS/HR; Start 07/23/16 at 11:00 Simethicone (Mylicon) 80 mg Q6H PRN PO DISTENSION/GAS/BLOATING Last administered on 07/23/16 21:35; Admin Dose 80 MG; Start 07/23/16 at 21:00 EZETIMIBE (Zetia) 5 mg Q48H PO Last administered on 07/25/16 20:27; Admin Dose 5 MG; Start 07/23/16 at 21:00 Phenol (Cepastat Lozenge) 1 lozenge Q2H PRN [place] SORE THROAT Last administered on 07/24/16 16:41; Admin Dose 1 LOZENGE; Start 07/24/16 at 01:00 Polyethylene Glycol (Miralax) 17 gm DAILY PRN PO CONSTIPATION Last administered on 07/24/16 21:31; Admin Dose 17 GM; Start 07/24/16 at 21:30 Cyclobenzaprine HCl (Flexeril) 5 mg Q6 PRN PO MUSCLE SPASMS Last administered on 07/26/16 01:49; Admin Dose 5 MG; Start 07/26/16 at 01:30 DELLA HADLEY MD Jul 27, 2016 08:23
[2016-07-27] MEDS: DOCUSATE SODIUM 100 MG CAP PO SCH (08:53)
[2016-07-27] MEDS: ASPIRIN (EC) 325 MG TAB PO SCH (08:53)
[2016-07-27] MEDS: CELECOXIB 200 MG CAP PO SCH (08:53)
[2016-07-27] MEDS: PREGABALIN 25 MG CAP PO SCH (08:53)
--- NOTE | 2016-07-27 10:36 | PN ---
Date/Time of Note Date/Time of Note DATE: 07/27/16 TIME: 10:26 Assessment/Plan Lines/Catheters IV Catheter Type (from Nrsg): Saline Lock Stoll in Place (from Nrsg): No Assessment/Plan Assessment/Plan Stable POD #5, s/p right anterior NAHUM -pain meds as needed -OOB with PT -dressing changed -d/c home today -follow up in 1 week Subjective 24 Hr Interval Summary Doing well. No acute overnight events. Pain much better overall. Progressing very nicely with PT. H&H improved. Would like to go home today. Exam/Review of Systems Vital Signs Vitals Vital Signs Date Time Temp Pulse Resp B/P Pulse Ox O2 Delivery O2 Flow Rate FiO2 07/27/16 08:12 98.5 80 18 127/66 99 07/26/16 08:00 Room Air Intake and Output 07/26/16 07/26/16 07/27/16 15:00 23:00 07:00 Intake Total 110 ml 1080 ml 760 ml Balance 110 ml 1080 ml 760 ml Exam Free Text/Dictation Dressing dry Incision clean, dry, and intact without redness or drainage 5/5 Quadriceps, Tibialis Anterior, EHL, Gastroc, Soleus, Peroneals Normal sensation Palpable DT/PT, CR <2 sec No distal edema Results Result Diagram: 07/27/16 0415 07/27/16 0415 GUS AC PA-C Jul 27, 2016 10:35
--- NOTE | 2016-07-27 23:53 | DS ---
DATE OF ADMISSION: 07/22/2016 DATE OF DISCHARGE: 07/27/2016 CONDITION ON DISCHARGE: Stable. ADMITTING DIAGNOSIS: Right hip osteoarthritis. DISCHARGE DIAGNOSIS: Status post right anterior total hip arthroplasty. PROCEDURE PERFORMED: Right anterior total hip arthroplasty. HOSPITAL COURSE: This is a 61-year-old female who was seen in the clinic initially complaining of right hip pain. X-rays were obtained and demonstrated advanced osteoarthritis of the right hip and it was thought she would benefit from a right anterior total hip arthroplasty. On 07/22/2016, the patient was admitted and taken to the operating room where she underwent a right anterior total hip arthroplasty. There were no intraoperative complications. The patient tolerated the procedure well. She was taken to the recovery room in stable condition. Pain was well controlled with oral pain medication. She did develop some postoperative anemia, but did not require blood transfusion. Additionally, she had some soft tissue swelling of the right lower extremity; however a doppler was obtained and negative for DVT. She was started on aspirin and SCDs for DVT prophylaxis. As mentioned previously, she remained hemodynamically stable and neurovascularly intact, but did develop some postoperative anemia. She began physical therapy on postoperative day 1 and continued to make good progress throughout her hospital course. She was deemed stable for discharge on postoperative day #5. Prior to discharge, the incision was inspected and noted to be clean, dry, and intact. Dressing changes were done prior to the patient going home. LABORATORY ANALYSIS: Hemoglobin 7.9, hematocrit 25.5. Chemistry panel was within normal limits. DISCHARGE MEDICATIONS: 1. Crewe 5/325 mg. 2. Tramadol 50 mg. 3. Protonix 40 mg. 4. Aspirin 325 mg. 5. Additionally, the patient is to resume all of her normal home medications. DISCHARGE INSTRUCTIONS: The patient will be discharged home in stable condition. She is to resume a normal diet. Activity level includes weightbearing as tolerated on the right lower extremity. She is to begin physical therapy with home health. She will be discharged home on the medications noted above and is to resume all of her normal home medications. She is to call the office or go to the emergency room for any concerns including increased redness, swelling, drainage, fever, or any concerns regarding the operation or site of incision. FOLLOWUP: The patient is to follow up in the office on 08/02/2016. Dictated By: GUS CHASE for MARIA GUADALUPE LOPEZ/EDIL Conf#: [id number] DID#: [id number] MTDD
== END 2016-07-27 13:00 | disposition home or self-care (01) | DRG 470 ==
LOC: REC 05:19 → EEVIPCON 07:00 → MS1 11:45
PROVIDERS: ADMIT Orthopaedic Surgery; ATTEND Orthopaedic Surgery
PROC: 0SR904A Replacement of Right Hip Joint with Ceramic on Polyethylene Synthetic Substitute, Uncemented, Open Approach (ICD-10-PCS; principal; 2016-07-22 07:00)
DX: M16.11 Unilateral primary osteoarthritis, right hip (principal); I10 Essential (primary) hypertension; Z79.82 Long term (current) use of aspirin; E87.6 Hypokalemia; E78.5 Hyperlipidemia, unspecified; D50.9 Iron deficiency anemia, unspecified
CPT/HCPCS: 72170; 73500; 73530; 80048; 81003; 82728; 83540; 85014; 85018; 85025; 86850; 86900; 86901; 86920; 87081; 87086; 88304; 88311; 93971; 97110; 97116; 97162; 97166; 97530; Z7610; C1776; C9290; J0131; J0171; J0330; J0690; J0697; J0735; J0886; J1100; J1170; J1885; J2250; J2274; J2405; J2710; J2916; J3010; J3370; J7030; J7040; J7120

== ENCOUNTER → 2016-08-02 | Outpatient (CLI) | payer BC ==
[~2016-08-02] MED LIST changes: +ASPI325T32 PO; -BUPIVACAINE LIPOSOME/PF 266 MG/20 ML VIAL INFIL ONE; -CEFAZOLIN 2GM/50 ML (PMX) 50 ML X1 BEFORE INCISION IVPB ONE; -CELECOXIB 400 MG PO X1 DOSE PO ONE; -EXPAREL NOTE (BUPIVICAINE LIPOSOMAL) XX SCH; +EZET10TA3 PO; +HYDR-906 PO; +HYDR12.58 PO; -PAIN COCKTAIL-CEFUROXIME IRR ONE; +PANT40TA4 PO; -PREGABALIN 300 MG PO X1 PO ONE; +TRAM50TA2 PO; -TRANEXAMIC ACID 800 MG in SOD CHLORIDE 0.9% 100 ML IVPB ONE; -TRANEXAMIC ACID 800 MG in SOD CHLORIDE 0.9% 92 ML IV ONE; -oxyCODONE (CR) 10 MG TAB [oxyCONTIN] X1 DOSE PO ONE; -traMADOL 50 MG TAB X 1 DOSE PO ONE
--- NOTE | 2016-08-02 13:53 | HKNOTE ---
DATE OF SERVICE: 08/02/2016 INTERVAL HISTORY: The patient presented today for her first followup evaluation. She is 10 days status post right anterior total hip arthroplasty. She is doing well overall. The swelling and pain in her right leg are improving. She is taking aspirin twice daily for DVT prophylaxis. She has been not taking very much pain medicine; however. She denies any fevers or chills. She presented today for her first postoperative evaluation. PHYSICAL EXAMINATION: Today, she is alert and oriented x4 and in no acute distress. She is walking with a front-wheel walker. Exam of the incision demonstrates it to be clean, dry and intact. Her right leg swelling is improving overall. Homans sign is negative. There is no erythema or warmth. Compartments are soft. Neurovascular status is intact distally. IMAGING: X-rays of the right hip were obtained today and reviewed by me. They reveal good anatomic alignment with no fracture or dislocation identified. ASSESSMENT: Ten days status post right anterior total hip arthroplasty. PLAN: The sutures were removed today and Steri-Strips were applied. Given that the right lower extremity swelling is improving we will hold off on obtaining any repeat Doppler of the right lower extremity. Her H and H were checked several days ago and are improving overall. I encouraged her to ice and elevate the extremity to decrease the swelling. Additionally, she should continue aspirin twice daily for DVT prophylaxis. We will see her back in 4 weeks for repeat evaluation. The patient is to call the office if she has any concerns in the meantime. Dictated By: GUS LOPEZ/EDIL Conf#: [id number] DID#: [id number] OLI
--- NOTE | 2016-08-02 17:19 | RADRPT ---
PROCEDURE: XR Right hip and pelvis. CLINICAL INDICATION: Right hip pain. Pelvic pain. Postop. TECHNIQUE: Two views. Frontal pelvis and frontal right hip. COMPARISON: 07/22/2016. FINDINGS: There is no fracture or dislocation. The soft tissues are normal. There is a right hip total arthroplasty which appears satisfactory. The left hip is grossly normal. There is no lytic or blastic lesion. There are degenerative changes of the lower lumbar spine. IMPRESSION: 1. Satisfactory postoperative appearance of the right hip. 2. Grossly normal appearance of the left hip. RPTAT: QQ .Stanley Laurent MD, MD Date Time Electronically viewed and signed by .Stanley Laurent MD, MD on 08/02/2016 17:19 .R/
== END | disposition home or self-care (01) ==
LOC: HKI 10:13
PROVIDERS: ATTEND Orthopaedic Surgery
DX: Z47.1 Aftercare following joint replacement surgery (principal); Z96.641 Presence of right artificial hip joint
CPT/HCPCS: 73502

== ENCOUNTER → 2016-08-30 | Outpatient (CLI) | payer BC ==
--- NOTE | 2016-08-30 12:35 | RADRPT ---
PROCEDURE: XR pelvis/right hip. CLINICAL INDICATION: Hip pain TECHNIQUE: AP pelvis/lateral right hip view available for review. COMPARISON: 08/02/2016 FINDINGS: There is a right total hip replacement. There is no evidence of loosening of the prosthesis. There i s no evidence of hardware failure. There is diffuse osteopenia. No fractures are identified. No os seous lesions are present. The left hip is unremarkable. The SI joints are unremarkable. There is lower lumbar degenerative disk disease. The soft tissues are unremarkable. IMPRESSION: Right total hip replacement Diffuse osteopenia RPTAT: HGDB .Justin Matthews MD, Date Time Electronically viewed and signed by .Justin Matthews MD, on 08/30/2016 12:35 .B/
== END | disposition home or self-care (01) ==
LOC: HKI 10:33
PROVIDERS: ATTEND Orthopaedic Surgery
DX: Z47.1 Aftercare following joint replacement surgery (principal); M16.11 Unilateral primary osteoarthritis, right hip; Z96.641 Presence of right artificial hip joint
CPT/HCPCS: 73502; G0463

== ENCOUNTER → 2016-10-29 | Outpatient (CLI) | payer BC ==
--- NOTE | 2016-10-29 14:12 | RADRPT ---
PROCEDURE: XR Pelvis 1 View and Hip 2 Views. CLINICAL INDICATION: Right hip pain, right hip replacement follow-up. TECHNIQUE: AP pelvis and AP and frog lateral views of the right hip were performed. COMPARISON: August 30, 2016 FINDINGS: Right hip replacement is identified. Prosthetic components appear in appropriate position and align ment. Diffuse osteopenia is observed. The osseous structures appear intact. No destructive bony l esions are observed. Moderate narrowing of the left hip joint is identified. Degenerative changes are seen in the lower lumbar spine. Soft tissues are unremarkable. IMPRESSION: Right hip replacement. Prosthetic components appear in appropriate position alignment. Appearance is unchanged from prior exam. Osteopenia. Moderate osteoarthritis of the left hip. Degenerative changes in the lower lumbar spine. If further characterization is needed CT or MRI could be helpful. RPTAT: AA .Tesfaye Cedeño MD, Date Time Electronically viewed and signed by .Tesfaye Cedeño MD, on 10/29/2016 14:12 .P/
== END | disposition home or self-care (01) ==
LOC: HKI 14:01
PROVIDERS: ATTEND Orthopaedic Surgery
DX: Z47.89 Encounter for other orthopedic aftercare (principal); Z96.641 Presence of right artificial hip joint
CPT/HCPCS: 73502; G0463